=== PATIENT | male | born 1935 | race Caucasian/White ===

== ENCOUNTER 2018-01-16 17:03 | Emergency (ER) | payer BC ==
[~2018-01-16] VITALS: Ht 175.3 cm; Wt 93.0 kg
[2018-01-16 17:04] VITALS: Ht 175.3 cm; Wt 93.0 kg
[2018-01-16 19:15] VITALS: BP 166/87
== END 2018-01-16 20:00 | disposition home or self-care (01) ==
LOC: EDBD 17:03 → ED 17:03
DX: S01.01XA Laceration without foreign body of scalp, initial encounter (principal); M25.552 Pain in left hip; E78.5 Hyperlipidemia, unspecified; G20 Parkinson's disease; F02.80 Dementia in other diseases classified elsewhere, unspecified severity, without behavioral disturbance, psychotic disturbance, mood disturbance, and anxiety; Z95.5 Presence of coronary angioplasty implant and graft; Z86.79 Personal history of other diseases of the circulatory system; W01.198A Fall on same level from slipping, tripping and stumbling with subsequent striking against other object, initial encounter; Y93.89 Activity, other specified; Y99.8 Other external cause status; Y92.89 Other specified places as the place of occurrence of the external cause
CPT/HCPCS: J2001

== ENCOUNTER 2018-08-04 13:03 | Emergency (ER) | payer BC ==
[~2018-08-04] VITALS: Ht 175.3 cm; Wt 81.6 kg
[2018-08-04 13:18] VITALS: Ht 175.3 cm; Wt 81.6 kg
[2018-08-04 14:12] LABS: BASOPHIL % 0.9 % (0-2); PLATELET COUNT 180 x10^3mcL (130-400)
[2018-08-04 14:14] LABS: RED CELL DISTRIBUTION WIDTH 16.8 % (11.5-14.5)
[2018-08-04 14:29] LABS: CALCIUM 7.9 mg/dL (8.5-10.1); CARBON DIOXIDE 25.6 mmol/L (21-32); CHLORIDE SERUM 108 mmol/L (98-107); CREATININE SERUM 1.4 mg/dL (0.7-1.3); GLUCOSE SERUM 117 mg/dL (74-106); POTASSIUM SERUM 4.3 mmol/L (3.5-5.1); SODIUM SERUM 140 mmol/L (136-145)
[2018-08-04 14:34] LABS: ALBUMIN 2.9 g/dL (3.4-5.0); ALKALINE PHOSPHATASE 91 U/L (46-116); ALT/SGPT 8 U/L (16-63); AST/SGOT 16 U/L (15-37); BILIRUBIN TOTAL 0.3 mg/dL (0.20-1.00); TOTAL PROTEIN, SERUM 5.9 g/dL (6.4-8.2)
[2018-08-04 14:40] VITALS: BP 109/64
== END 2018-08-04 14:42 | disposition short-term general hospital (02) ==
LOC: ED 13:03
PROVIDERS: Emergency Medicine
DX: I63.8 Other cerebral infarction (principal); E78.5 Hyperlipidemia, unspecified; G20 Parkinson's disease; F02.80 Dementia in other diseases classified elsewhere, unspecified severity, without behavioral disturbance, psychotic disturbance, mood disturbance, and anxiety; Z95.818 Presence of other cardiac implants and grafts
CPT/HCPCS: 36415; Q0092